=== PATIENT | female | born 2000 | race Caucasian/White ===

== ENCOUNTER 2020-06-05 16:08 | Emergency (ER) | payer OTHER ==
[~2020-06-05] VITALS: Ht 175.3 cm; Wt 63.5 kg
== END 2020-06-05 18:13 | disposition home or self-care (01) ==
LOC: ER 16:08
DX: S90.871A Other superficial bite of right foot, initial encounter (principal); W56.81XA Bitten by other nonvenomous marine animals, initial encounter; Y92.832 Beach as the place of occurrence of the external cause; Y93.89 Activity, other specified; Y99.8 Other external cause status